=== PATIENT | male | born 1990 | race Caucasian/White ===

== ENCOUNTER 2017-02-11 04:24 | Emergency (ER) | payer OTHER ==
[~2017-02-11] VITALS: Ht 180.3 cm; Wt 115.0 kg
[2017-02-11 04:27] VITALS: BP 163/93
== END 2017-02-11 06:55 | disposition home or self-care (01) ==
LOC: ED 06:07
DX: S92.354A Nondisplaced fracture of fifth metatarsal bone, right foot, initial encounter for closed fracture (principal); Z87.891 Personal history of nicotine dependence; W10.9XXA Fall (on) (from) unspecified stairs and steps, initial encounter; Y93.89 Activity, other specified; Y92.410 Unspecified street and highway as the place of occurrence of the external cause; Y99.9 Unspecified external cause status
CPT/HCPCS: 29515

== ENCOUNTER 2017-06-24 09:35 | Emergency (ER) | payer OTHER ==
[~2017-06-24] VITALS: Ht 180.3 cm; Wt 144.7 kg
[2017-06-24 09:37] VITALS: BP 145/93
[2017-06-24 10:55] LABS: RAPID INFLUENZA A Negative (Negative); RAPID INFLUENZA B Negative (Negative)
== END 2017-06-24 11:22 | disposition home or self-care (01) ==
LOC: ED 11:00
DX: J20.8 Acute bronchitis due to other specified organisms (principal)
CPT/HCPCS: 71020; 87400; 93005; 99285